=== PATIENT | male | born 1985 | race Caucasian/White ===

== ENCOUNTER 2017-01-27 09:04 | Emergency (ER) | payer MEDICAID ==
[~2017-01-27] VITALS: Ht 170.2 cm; Wt 74.8 kg
[~2017-01-27 09:04] MED LIST: ALBU2.5V7 INH; LORA10TA7 PO; MULT PO
[2017-01-27 09:05] VITALS: BP_SYST 133
[2017-01-27 10:26] VITALS: BP_SYST 128
== END 2017-01-27 10:20 | disposition home or self-care (01) ==
LOC: SED 09:04
DX: J45.901 Unspecified asthma with (acute) exacerbation (principal)
CPT/HCPCS: 99283

== ENCOUNTER 2018-02-20 12:58 | Emergency (ER) | payer BC, MEDICAID ==
[~2018-02-20] VITALS: Ht 170.2 cm; Wt 83.9 kg
[2018-02-20 12:58] VITALS: BP_SYST 163
[2018-02-20] MEDS: ALBUTEROL SULFATE 0.083% 2.5 MG/3 ML VIAL.NEB IH ONE ×2 (13:16→14:31)
[2018-02-20] MEDS: IPRATROPIUM BROM 0.5 MG/2.5 ML VIAL.NEB (ATROVENT) IH ONE ×2 (13:17→14:31)
[2018-02-20] MEDS ORDERED: MAGNESIUM SULFATE 1 GM/2 ML VIAL ONE (13:22)
[2018-02-20] MEDS: MAGNESIUM SULFATE 1 GM in NS 50 ML IV ONE (13:32)
[2018-02-20 15:03] VITALS: BP_SYST 125
== END 2018-02-20 15:03 | disposition home or self-care (01) ==
LOC: SED 12:58
DX: J30.81 Allergic rhinitis due to animal (cat) (dog) hair and dander (principal); Z79.899 Other long term (current) drug therapy
CPT/HCPCS: 94640; 96365; 99284; J3475; J7613